=== PATIENT | female | born 1955 | race Caucasian/White ===

== ENCOUNTER 2023-11-08 14:16 | Outpatient (AMB) | payer MEDICARE, MEDICAID, SELFPAY ==
--- NOTE | 2023-11-08 14:18 | A.OFFVIS_ITS ---
Intake Visit Reasons: recurrent UTI and dysuria Intake Note: NEW Patient presents today to established treatment for UTI & Dysuria: Meds- Oxybutynin Allergies to Antibiotic- No Known Allergies Blood Thinner- None PVR 35 mL Cutter Banana Room Required: No Accompanied by: Self / Same As Patient Allergies ciprofloxacin [From Cipro] Allergy (Mild, Verified 11/08/23 14:32) Hives Iodinated Contrast Media Allergy (Mild, Verified 11/08/23 14:32) Hives Penicillins Allergy (Mild, Verified 11/08/23 14:32) Hives Sulfa (Sulfonamide Antibiotics) Allergy (Mild, Verified 11/08/23 14:33) Hives pollen extracts Allergy (Verified 11/08/23 14:33) Shortness of Breath doxycycline Adverse Reaction (Verified 11/08/23 14:32) Nausea HPI Comments Details: Nora is a 67-year-old female who is here for evaluation due to recurrent UTIs. She states the problem has done going on for 2-3 years. She has symptoms of urgency and dysuria. I reviewed urine culture 06/27/2023 resulting in E coli pansensitive, and urine culture 07/05/23- No growth. The patient states that after completing antibiotic feel better and has been taking zvge-[id number]-hozyxfr D- mannose. The patient has allergies to a few antibiotics ciprofloxacin, penicillin and Bactrim resulting in hives and sensitivity to doxycycline, nausea. I have discussed that in Karen and postmenopausal women who are sexual active due to changes estrogen production there is a decrease in vaginal pH that can promote an environment for his bacteria. Nora states that her is recently diagnosed with prostate cancer and undergoing radiation therapy. Office Urinalysis 3+ leukocytes trace blood, bladder scan PVR 35 mL. I have discussed further evaluation with renal ultrasound and office cystoscopy, pelvic exam at time. [facility] Medical History (Updated 11/08/23 @ 15:46 by Fatuma Shrestha MD) Hx of recurrent urinary tract infection History of dysuria Dysfunction of right eustachian tube GERD (gastroesophageal reflux disease) Allergic rhinitis HTN (hypertension) Obstructive sleep apnea Anxiety Surgical History (Updated 11/08/23 @ 14:26 by CECE Ponce) Hx of colonoscopy History of esophagogastroduodenoscopy (EGD) Family History (Updated 11/08/23 @ 14:25 by CECE Ponce) Father History of colon polyps Mother History of colon polyps Social History (Updated 11/08/23 @ 14:25 by CECE Ponce) Alcohol intake: current Alcohol intake frequency: holidays/special occasions only Patient Tobacco Use Status: Never used Tobacco Review of Systems Const All systems reviewed & are unremarkable except as noted in HPI and below Reports no additional complaints Eyes Reports no additional complaints ENT Reports no additional complaints Card Reports no additional complaints Resp Reports no additional complaints GI Reports no additional complaints Reports as per HPI Musc Reports no additional complaints Skin/Breast Reports system reviewed and no additional complaints, except as documented Neuro Reports no additional complaints Psych Reports no additional complaints Endo Reports no additional complaints Bienvenido/Lymph Reports no additional complaints Aller/Immun Reports no additional complaints Physical Exam Const General: cooperative, healthy appearing and no acute distress Orientation/consciousness: patient oriented x3 HEENT Head: Yes normal to inspection, Yes normocephalic and Yes atraumatic Eyes Conjunctivae: conjunctivae normal Neck Neck: Yes normal visual inspection and Yes trachea midline Chest Chest palpation & inspection: normal inspection of the chest Resp Effort & Inspection: normal respiratory effort Cardio Jugular venous distension: no JVD GI Inspection: Yes normal to inspection Skin General skin exam: no rashes or lesions noted Neuro General: patient oriented x3 Extrem General: No edema Psych Appearance: grossly normal Office Procedures Post Void Residual Post Residual Void Post Void Residual (PVR): 35 [id number] Void Residual by ultrasound Results AMB Urinalysis, Automated UA Leukoctes 500 Maye/uL Last Edit by CECE Ponce on 11/08/23 15:49 3+ Faustino Chery 11/08/23 15:49 UA Nitrite Negative Last Edit by CECE Ponce on 11/08/23 15:49 UA Urobilinogen 0.2 mg/dL Last Edit by CECE Ponce on 11/08/23 15:4 9 UA Protein 0 mg/dL Last Edit by CECE Ponce on 11/08/23 15:49 UA pH 7.0 Last Edit by CECE Ponce on 11/08/23 15:49 UA Blood 10 Andrez/uL Last Edit by CECE Ponce on 11/08/23 15:49 UA Specific [place] 1.005 Last Edit by ANA LUISA PonceA on 11/08/23 15: 49 UA Ketone Negative Last Edit by ANA LUISA PonceA on 11/08/23 15:49 UA Bilirubin 0 mg/dL Last Edit by CECE Ponce on 11/08/23 15:49 UA Glucose 0 mg/dL Last Edit by CECE Ponce on 11/08/23 15:49 Results Reviewed Results Reviewed: Laboratory Last Values Urine pH (Auto) 7.0 11/08/23 15:48 Specific [place] (Auto) 1.005 11/08/23 15:48 Urine Protein (Auto) 0 mg/dL 11/08/23 15:48 Glucose (UA)(Auto) 0 mg/dL 11/08/23 15:48 Urine Ketones (Auto) Negative 11/08/23 15:48 Urine Blood (Auto) 10 Andrez/uL 11/08/23 15:48 Urine Nitrite (Auto) Negative 11/08/23 15:48 Urine Bilirubin (Auto) 0 mg/dL 11/08/23 15:48 Urine Urobilinogen (Auto) 0.2 mg/dL 11/08/23 15:48 Leukocyte Esterase (Auto) 500 Maye/uL 11/08/23 15:48 Assessment & Plan Assessment & Plan (1) Recurrent UTI: Code(s): N39.0 - Urinary tract infection, site not specified Category: Medical (2) Urine leukocytes: Code(s): R82.998 - Other abnormal findings in urine Category: Medical (3) Microscopic hematuria: Code(s): R31.29 - Other microscopic hematuria Category: Medical Plan Surveillance urine culture, renal ultrasound (patient requests Cano) and office cystoscopy Orders: Orders AMB Urinalysis Automated 11/08/23 Z13.9 - Encounter for screening, unspecified Urine Culture 11/08/23 N39.0 - Urinary tract infection, site not specified AMB Post Void Residual by ultrasound 11/08/23 N39.8 - Other specified disorders of urinary system US renal BI 11/08/23 N39.0 - Urinary tract infection, site not specified Patient Instructions: The patient had an opportunity to ask questions regarding treatment plan. The patient expressed understanding and agreement with the above treatment plan. The patient is aware they should contact our office by phone for worsening of their current condition or the appearance of new symptoms. Compliance is encouraged with any medications and followup testing that is ordered. It is a privilege to be allowed the opportunity to participate in the urologic care of your patient. If you have any questions or concerns regarding treatment for the above conditions please do not hesitate to contact me. The office telephone contact is [phone]. This note is constructed in part using voice recognition software. While every effort has been made to ensure accuracy construction tech errors may have been included. Yours sincerely, Fatuma Shrestha MD Coding Level of Care Code New Pt Level 4 (57646) Diagnoses Recurrent UTI N39.0 Urine leukocytes R82.998 Microscopic hematuria R31.29 CPT Codes Post Residual Void - PVR CPT Code: 29116-Ftbc Void Residual by ultrasound ([id number])
== END 2023-11-08 15:35 | disposition home or self-care (01) ==
PROVIDERS: PCP Family Medicine; Visit Provider Urology
DX: N39.0 Urinary tract infection, site not specified (principal); R82.998 Other abnormal findings in urine; R31.29 Other microscopic hematuria
CPT/HCPCS: 99204

== ENCOUNTER 2023-11-08 14:16 | Outpatient (REF) | payer MEDICARE, MEDICAID, SELFPAY | END 2023-11-08 14:17 | disposition home or self-care (01) | LOC: HO.LAB 14:16 | PROVIDERS: PCP Family Medicine; Visit Provider Urology | DX: N39.0 Urinary tract infection, site not specified (principal); R82.998 Other abnormal findings in urine; R31.29 Other microscopic hematuria; Z79.899 Other long term (current) drug therapy | CPT/HCPCS: 51798; 81003; 87086; 99202 ==

== ENCOUNTER 2023-12-13 13:17 | Outpatient (AMB) | payer MEDICARE, MEDICAID, SELFPAY ==
--- NOTE | 2023-12-13 13:35 | MHC.OFFVIS ---
Intake Visit Reasons: cysto/US Intake Note: NEW Patient presents today for cysto/US Meds- Oxybutynin Allergies to Antibiotic- Penicillin,ciprofloxacin,doxycycline,sulfa Blood Thinner- None PVR: 35 mL Today's PVR: 0ml's Dam Tender Required: No Accompanied by: Self / Same As Patient Allergies ciprofloxacin [From Cipro] Allergy (Mild, Verified 01/23/24 14:24) Hives Iodinated Contrast Media Allergy (Mild, Verified 01/23/24 14:24) Hives Penicillins Allergy (Mild, Verified 01/23/24 14:24) Hives Sulfa (Sulfonamide Antibiotics) Allergy (Mild, Verified 01/23/24 14:24) Hives pollen extracts Allergy (Verified 01/23/24 14:24) Shortness of Breath doxycycline Adverse Reaction (Verified 01/23/24 14:24) Nausea HPI Comments Details: 12/13/2023--here for office cystoscopy. Renal ultrasound completed, 12/12/23--results reviewed with the patient kidneys and bladder within normal limits. She states she has had repeat episodes of blood in the urine. She was treated again with antibiotics by her PCP but urine culture came back no growth. Cystoscopy findings:--prominent vasculature with erythematous changes noted. I have discussed further evaluation with biopsy. 11/08/23--Nora is a 67-year-old female who is here for evaluation due to recurrent UTIs. She states the problem has done going on for 2-3 years. She has symptoms of urgency and dysuria. I reviewed urine culture 06/27/2023 resulting in E coli pansensitive, and urine culture 07/05/23- No growth. The patient states that after completing antibiotic feel better and has been taking lasy-qex-qqupese D-mannose. The patient has allergies to a few antibiotics ciprofloxacin, penicillin and Bactrim resulting in hives and sensitivity to doxycycline, nausea. I have discussed that in Karen and postmenopausal women who are sexual active due to changes estrogen production there is a decrease in vaginal pH that can promote an environment for his bacteria. Nora states that her is recently diagnosed with prostate cancer and undergoing radiation therapy. Office Urinalysis 3+ leukocytes trace blood, bladder scan PVR 35 mL. I have discussed further evaluation with renal ultrasound and office cystoscopy, pelvic exam at time. [facility] Medical History Hx of recurrent urinary tract infection History of dysuria Dysfunction of right eustachian tube GERD (gastroesophageal reflux disease) Allergic rhinitis HTN (hypertension) Obstructive sleep apnea Anxiety Surgical History Hx of colonoscopy History of esophagogastroduodenoscopy (EGD) Family History Father History of colon polyps Mother History of colon polyps Social History Alcohol intake: current Alcohol intake frequency: does not drink Patient Tobacco Use Status: Never used Tobacco Review of Systems Const All systems reviewed & are unremarkable except as noted in HPI and below Reports no additional complaints Eyes Reports no additional complaints ENT Reports no additional complaints Card Reports no additional complaints Resp Reports no additional complaints GI Reports no additional complaints Reports as per HPI Musc Reports no additional complaints Skin/Breast Reports system reviewed and no additional complaints, except as documented Neuro Reports no additional complaints Psych Reports no additional complaints Endo Reports no additional complaints Bienvenido/Lymph Reports no additional complaints Aller/Immun Reports no additional complaints Office Procedures Cystoscopy Consent Discussed risk and benefit or proposed procedure with the patient. Information consent for procedure given to the patient. Discussed technical aspects, risks, benefits and alternatives in full. Addressed all of the patient's questions and concerns regarding the procedure. The patient demonstrated knowledge and understanding. They wish to proceed with this procedure. Preparation The patient was prepped in the usual manner. A interventional radiology technologist was present and in the room. Genitalia was prepped with betadine solution in a sterile manner. Lidocaine Jelly 2% was placed into the urethra and 16Fr flexible Olympus cystoscope was inserted into the meatus after adequate lubrication. Procedure Time out per protocol performed. Bladder Inspection Bladder Inspection: The bladder was inspected in its entirety with utilization retroflexion displaying: Trabeculation: Mild Mucosal Erthema: prominent vasculature with erythematous changes noted. Orifices: normal shape and position Urethra: normal Cystoscopy findings:--prominent vasculature with erythematous changes noted. I have discussed further evaluation with biopsy. [id number] DISPOSABLE SCOPE URO-G FLEXIBLE SCOPE Procedure code (CPT) selection complete Office Meds lidocaine HCl 2 % mucosal jelly in applicator Performing Provider: Fatuma Shrestha MD Performing Location: [facility] [place] [facility] [place] [facility] Administered by: Arcenio Lewis LPN on 12/13/23 13:48 Dose Route Admin Location Dispensed Lot Number Expiration Date NDC Cullet Washer 10 mL intra-urethral 10 mL nitrofurantoin monohydrate/macrocrystals 100 mg capsule Performing Provider: Fatuma Shrestha MD Performing Location: [facility] [place] [facility] [place] [facility] Administered by: Arcenio Lewis LPN on 12/13/23 13:48 Dose Route Admin Location Dispensed Lot Number Expiration Date NDC Cullet Washer 100 mg PO 1 cap naproxen 500 mg tablet Performing Provider: Fatuma Shrestha MD Performing Location: [facility] [place] [facility] Administered by: Arcenio Lewis LPN on 12/13/23 13:48 Dose Route Admin Location Dispensed Lot Number Expiration Date NDC Cullet Washer 500 mg PO 1 tab Results AMB Urinalysis, Automated UA Leukoctes 500 Maye/uL Last Edit by IVY Villatoro on 12/13/23 13:48 UA Nitrite Negative Last Edit by IVY Villatoro on 12/13/23 13:48 UA Urobilinogen 0.2 mg/dL Last Edit by IVY Villatoro on 12/13/23 13:48 UA Protein 0 mg/dL Last Edit by IVY Villatoro on 12/13/23 13:48 UA pH 6.5 Last Edit by IVY Villatoro on 12/13/23 13:48 UA Blood 80 Andrez/uL Last Edit by IVY Villatoro on 12/13/23 13:48 UA Specific [place] 1.005 Last Edit by IVY Villatoro on 12/13/23 13:48 UA Ketone Negative Last Edit by IVY Villatoro on 12/13/23 13:48 UA Bilirubin 0 mg/dL Last Edit by IVY Villatoro on 12/13/23 13:48 UA Glucose 0 mg/dL Last Edit by IVY Villatoro on 12/13/23 13:48 Results Reviewed Results Reviewed: Laboratory Last Values Urine pH (Auto) 6.5 12/13/23 13:47 Specific [place] (Auto) 1.005 12/13/23 13:47 Urine Protein (Auto) 0 mg/dL 12/13/23 13:47 Glucose (UA)(Auto) 0 mg/dL 12/13/23 13:47 Urine Ketones (Auto) Negative 12/13/23 13:47 Urine Blood (Auto) 80 Andrez/uL 12/13/23 13:47 Urine Nitrite (Auto) Negative 12/13/23 13:47 Urine Bilirubin (Auto) 0 mg/dL 12/13/23 13:47 Urine Urobilinogen (Auto) 0.2 mg/dL 12/13/23 13:47 Leukocyte Esterase (Auto) 500 Maye/uL 12/13/23 13:47 Assessment & Plan Assessment & Plan (1) Recurrent UTI: Code(s): N39.0 - Urinary tract infection, site not specified Category: Medical (2) Urine leukocytes: Code(s): R82.998 - Other abnormal findings in urine Category: Medical (3) Microscopic hematuria: Code(s): R31.29 - Other microscopic hematuria Category: Medical (4) Hematuria: Code(s): R31.9 - Hematuria, unspecified Category: Medical Plan Cystoscopy findings:--prominent vasculature with erythematous changes noted. I have discussed further evaluation with biopsy. Orders: Orders AMB Urinalysis Automated 12/13/23 Z13.9 - Encounter for screening, unspecified AMB Cystoscopy 12/13/23 R31.29 - Other microscopic hematuria, N39.0 - Urinary tract infection, site not specified, R82.998 - Other abnormal findings in urine Coding Level of Care Code Est Pt Level 3 (74817) Diagnoses Recurrent UTI N39.0 Urine leukocytes R82.998 Microscopic hematuria R31.29 Hematuria R31.9 CPT Codes Cystoscopy - CPT: 66999-Tbchatzmcc ([id number])
== END 2023-12-13 14:57 | disposition home or self-care (01) ==
PROVIDERS: PCP Family Medicine; Visit Provider Urology
DX: R31.29 Other microscopic hematuria (principal); N39.0 Urinary tract infection, site not specified; R82.998 Other abnormal findings in urine; Z13.9 Encounter for screening, unspecified
CPT/HCPCS: 52000

== ENCOUNTER → 2023-12-13 13:17 | Outpatient (BNVA) | payer MEDICARE, MEDICAID, SELFPAY | PROVIDERS: PCP Family Medicine; Visit Provider Urology | DX: N39.0 Urinary tract infection, site not specified (principal); R82.998 Other abnormal findings in urine; R31.29 Other microscopic hematuria; R31.9 Hematuria, unspecified | CPT/HCPCS: 52000; 81003 ==

== ENCOUNTER 2024-01-01 09:56 | Day surgery (SDC) | payer MEDICARE, OTHER, SELFPAY ==
--- NOTE | 2023-12-31 10:42 | HO.ANESPROP2 ---
Documented by User: Janet Portillo NP 12/31/23 10:44 HPI - Anesthesia Eval Consult details Narrative: 68yo F for Cystoscopy & Bladder Biopsy PMFSH Active Problems Active Problems: All Active Problems Hematuria (Acute) Microscopic hematuria (Acute) Urine leukocytes (Acute) Recurrent UTI (Acute) Past Medical History Medical History Hx of recurrent urinary tract infection History of dysuria Dysfunction of right eustachian tube GERD (gastroesophageal reflux disease) Allergic rhinitis HTN (hypertension) Obstructive sleep apnea Anxiety Family History Family History Father History of colon polyps Mother History of colon polyps Surgical History Surgical History Hx of colonoscopy History of esophagogastroduodenoscopy (EGD) Social History Social History Alcohol intake: current Alcohol intake frequency: does not drink Patient Tobacco Use Status: Never used Tobacco Are you DNR?: No Advance Directives: No Advance Directives Information Provided: Yes Meds Allergies Allergy/AdvReac Type Severity Reaction Status Date / Time ciprofloxacin [From Cipro] Allergy Mild Hives Verified 12/13/23 13:36 Iodinated Contrast Media Allergy Mild Hives Verified 12/13/23 13:36 Penicillins Allergy Mild Hives Verified 12/13/23 13:36 Sulfa (Sulfonamide Allergy Mild Hives Verified 12/13/23 13:36 Antibiotics) pollen extracts Allergy Shortness Verified 12/13/23 13:36 of Breath doxycycline AdvReac Nausea Verified 12/13/23 13:36 Home Medications ?Medication ?Instructions ?Recorded ?Confirmed ?Last Taken ?Type chlorthalidone 25 mg tablet 25 mg PO DAILY 11/08/23 Unknown History famotidine 40 mg tablet 40 mg PO BID 11/08/23 Unknown History lorazepam 0.5 mg tablet mg PO 11/08/23 Unknown History oxybutynin chloride 5 mg 5 mg PO DAILY 11/08/23 Unknown History tablet,extended release 24 hr Assessment and Plan Assessment Anesthesia Assessment: Chart Reviewed Documented by User: Kristi Odell MD 01/01/24 12:39 PMFSH Past Medical History Medical History Hx of recurrent urinary tract infection History of dysuria Dysfunction of right eustachian tube GERD (gastroesophageal reflux disease) Allergic rhinitis HTN (hypertension) Obstructive sleep apnea Anxiety Family History Family History Father History of colon polyps Mother History of colon polyps Surgical History Surgical History Hx of colonoscopy History of esophagogastroduodenoscopy (EGD) History of Problems with Anesthesia: No Social History Social History Alcohol intake: current Alcohol intake frequency: does not drink Patient Tobacco Use Status: Never used Tobacco Are you DNR?: No Advance Directives: No Advance Directives Information Provided: Yes Meds Allergies Allergy/AdvReac Type Severity Reaction Status Date / Time ciprofloxacin [From Cipro] Allergy Mild Hives Verified 12/13/23 13:36 Iodinated Contrast Media Allergy Mild Hives Verified 12/13/23 13:36 Penicillins Allergy Mild Hives Verified 12/13/23 13:36 Sulfa (Sulfonamide Allergy Mild Hives Verified 12/13/23 13:36 Antibiotics) pollen extracts Allergy Shortness Verified 12/13/23 13:36 of Breath doxycycline AdvReac Nausea Verified 12/13/23 13:36 Home Medications ?Medication ?Instructions ?Recorded ?Confirmed ?Last Taken ?Type chlorthalidone 25 mg tablet 25 mg PO DAILY 11/08/23 Unknown History famotidine 40 mg tablet 40 mg PO BID 11/08/23 Unknown History lorazepam 0.5 mg tablet mg PO 11/08/23 Unknown History oxybutynin chloride 5 mg 5 mg PO DAILY 11/08/23 Unknown History tablet,extended release 24 hr Exam Airway Mallampati Class: II TM Dist: >3cm Neck ROM: Full Loose/Missing/Broken Teeth: No Heart: RRR Lungs: CTA Assessment and Plan Assessment Anesthesia Assessment: Anesthesia Plan Discussed Final Anesthetic Review History of Problems with Anesthesia: No NPO: Yes ASA Class: III Final Preanesthetic Review: Meds/Allgs Chart Reviewed, Consent Obtained/Reviewed and Anes Risks/Benef Reviewed Patient Risk: Intermediate Procedure Risk: Low Anesthetic Plan Anesthetic Plan: GA Disposition: Standard PACU
[2024-01-01 10:24] VITALS: BP 149/77; PULSE 66; RESP 18; TEMP 36.3; O2SAT 96; BMI 24.3
[2024-01-01] MEDS: Lactated Ringers 1,000 ML 100 ML IVCONT (10:46)
--- NOTE | 2024-01-01 12:53 | MHC.SHP ---
Pre-Procedural Eval Section A - 24 Hr Update-Section A only Date of Service: 01/01/24 The patient is an INPATIENT: No The patient has been examined within 24 hours of the surgical procedure. The History & Physical has been completed within 30 days and I have reviewed it.: Yes Section B - Complete if H&P > 30 days Chief Complaint: Hematuria, unspecified Allergies: Allergies Allergy/AdvReac Type Severity Reaction Status Date / Time ciprofloxacin [From Cipro] Allergy Mild Hives Verified 12/13/23 13:36 Iodinated Contrast Media Allergy Mild Hives Verified 12/13/23 13:36 Penicillins Allergy Mild Hives Verified 12/13/23 13:36 Sulfa (Sulfonamide Allergy Mild Hives Verified 12/13/23 13:36 Antibiotics) pollen extracts Allergy Shortness Verified 12/13/23 13:36 of Breath doxycycline AdvReac Nausea Verified 12/13/23 13:36 Plan Diagnosis/Plan: Unchanged I have reviewed the history and physical and performed a pertinent physical examination on my patient. No changes have occurred unless specified. Cystoscopy Bladder biopsies. Time Spent With Patient Time: Total time managing care of this patient today ____ minutes.
[2024-01-01 14:30] VITALS: BP 137/59; PULSE 67; RESP 16; TEMP 36.3; O2SAT 99
[2024-01-01 14:35] VITALS: BP 131/57; PULSE 68; RESP 16; O2SAT 99
[2024-01-01 14:40] VITALS: BP 140/60; PULSE 72; RESP 16; O2SAT 99
--- NOTE | 2024-01-01 14:41 | W.PM.OPN ---
Operative Note Operative Note Date of Service: 01/01/24 Narrative: PREOP DIAGNOSIS: Hematuria POSTOP DIAGNOSIS: Hematuria PROCEDURE: CYSTOSCOPY BLADDER BIOPSIES SURGEON: Fatuma Shrestha MD ANESTHESIA: GENERAL Indications: The patient had office cystoscopy which noted multifocal erythematous changes. Further evaluation with bladder biopsies discussed. Details of procedure: The patient was brought into the operating room placed on the OR table in supine position. 2 g of Ancef IV. General anesthesia was administered. The patient was repositioned into lithotomy position, prepped and draped in the usual sterile fashion. Time-out was done per protocol. 2% lidocaine urojet was passed transurethrally into the bladder. A 22 fr cystoscope was placed transurethrally into the bladder. The right and left ureteral orifices were visualized. The entire bladder was visualized. Multifocal erythematous changes noted on the posterior wall and right lateral wall. Biopsies were obtained. The Bugbee electrode was used to obtain adequate hemostasis. The cystoscope was removed. The patient was brought out of anesthesia and taken to recovery in stable condition. Complications: None Drains: None
[2024-01-01 14:45] VITALS: BP 133/59; PULSE 77; RESP 16; O2SAT 99
[2024-01-01 15:00] VITALS: BP 127/53; PULSE 64; RESP 16; TEMP 36.1; O2SAT 99
== END 2024-01-01 15:19 | disposition home or self-care (01) ==
PROVIDERS: PCP Family Medicine; Visit Provider Urology
PROC: (CPT 52204; principal; 2024-01-01 11:30)
DX: N30.21 Other chronic cystitis with hematuria (principal); R30.0 Dysuria; R39.15 Urgency of urination; Z87.440 Personal history of urinary (tract) infections; I10 Essential (primary) hypertension; J30.9 Allergic rhinitis, unspecified; G47.33 Obstructive sleep apnea (adult) (pediatric); F41.9 Anxiety disorder, unspecified; Z79.899 Other long term (current) drug therapy; Z88.0 Allergy status to penicillin; Z88.1 Allergy status to other antibiotic agents; Z88.2 Allergy status to sulfonamides; Z91.041 Radiographic dye allergy status
CPT/HCPCS: 52204; 88305; J0690; J1100; J2405; J2704; J3010

== ENCOUNTER → 2024-01-01 09:56 | Outpatient (BNV) | payer MEDICARE, SELFPAY | PROVIDERS: PCP Family Medicine; Visit Provider Urology | DX: R31.9 Hematuria, unspecified (principal) | CPT/HCPCS: 52204 ==

== ENCOUNTER 2024-01-23 15:13 | Outpatient (AMB) | payer MEDICARE, MEDICAID, SELFPAY ==
--- NOTE | 2024-01-23 13:49 | MHC.OFFVIS ---
Intake Visit Reasons: Post op/Bladder biopsy results Intake Note: Pt presents to the office today as a telehealth visit for post op/Bladder biopsy results. Allergies ciprofloxacin [From Cipro] Allergy (Mild, Verified 01/23/24 14:24) Hives Iodinated Contrast Media Allergy (Mild, Verified 01/23/24 14:24) Hives Penicillins Allergy (Mild, Verified 01/23/24 14:24) Hives Sulfa (Sulfonamide Antibiotics) Allergy (Mild, Verified 01/23/24 14:24) Hives pollen extracts Allergy (Verified 01/23/24 14:24) Shortness of Breath doxycycline Adverse Reaction (Verified 01/23/24 14:24) Nausea HPI Comments Details: 01/23/24--reviewed path, - cysttitis-- pt doing well post bx FU in 6 months monitor urinary symptoms, currently she is asymptomatic. Review of symptoms: 12/13/2023--here for office cystoscopy. Renal ultrasound completed, 12/12/23--results reviewed with the patient kidneys and bladder within normal limits. She states she has had repeat episodes of blood in the urine. She was treated again with antibiotics by her PCP but urine culture came back no growth. Cystoscopy findings:--prominent vasculature with erythematous changes noted. I have discussed further evaluation with biopsy. 11/08/23--Nora is a 67-year-old female who is here for evaluation due to recurrent UTIs. She states the problem has done going on for 2-3 years. She has symptoms of urgency and dysuria. I reviewed urine culture 06/27/2023 resulting in E coli pansensitive, and urine culture 07/05/23- No growth. The patient states that after completing antibiotic feel better and has been taking [id number] D-mannose. The patient has allergies to a few antibiotics ciprofloxacin, penicillin and Bactrim resulting in hives and sensitivity to doxycycline, nausea. I have discussed that in Karen and postmenopausal women who are sexual active due to changes estrogen production there is a decrease in vaginal pH that can promote an environment for his bacteria. Nora states that her is recently diagnosed with prostate cancer and undergoing radiation therapy. Office Urinalysis 3+ leukocytes trace blood, bladder scan PVR 35 mL. I have discussed further evaluation with renal ultrasound and office cystoscopy, pelvic exam at time. [facility] Medical History Hx of recurrent urinary tract infection History of dysuria Dysfunction of right eustachian tube GERD (gastroesophageal reflux disease) Allergic rhinitis HTN (hypertension) Obstructive sleep apnea Anxiety Surgical History Hx of colonoscopy History of esophagogastroduodenoscopy (EGD) Family History Father History of colon polyps Mother History of colon polyps Social History Alcohol intake: current Alcohol intake frequency: does not drink Patient Tobacco Use Status: Never used Tobacco Review of Systems Const All systems reviewed & are unremarkable except as noted in HPI and below Reports no additional complaints Eyes Reports no additional complaints ENT Reports no additional complaints Card Reports no additional complaints Resp Reports no additional complaints GI Reports no additional complaints Reports as per HPI Musc Reports no additional complaints Skin/Breast Reports system reviewed and no additional complaints, except as documented Neuro Reports no additional complaints Psych Reports no additional complaints Endo Reports no additional complaints Bienvenido/Lymph Reports no additional complaints Aller/Immun Reports no additional complaints Telehealth Telehealth Telehealth Platform: Telephone Location of provider rendering services: practice address Location of patient: address on file Patient Identification confirmed using: Name, : Yes Telehealth method: voice only Patient verbally consented to treatment: Yes Patient verbally consented to billing insurance company: Yes Patient informed of any privacy concerns related to visit: Yes Minutes spent on Phone/Video with Pt.: 15 Results Reviewed Results Reviewed: Collected: 01/01/24 Location: [facility] Received: 01/01/24 Diagnosis A. Bladder, posterior wall lesion, biopsy: Mild chronic cystitis; no definitive muscularis propria identified. B. Bladder, posterior wall lesion #2, biopsy: Mild chronic cystitis; muscularis propria present. C. Bladder, right lateral wall, biopsy: Mild chronic cystitis; no muscularis propria present. D. Bladder, random left wall, biopsy: Mild chronic cystitis; muscularis propria present. Clinical History Hematuria Microscopic Description A-D. Microscopic sections reviewed. Material Received A. Bladder lesion posterior wall B. Bladder lesion posterior wall #2 C. Right lateral bladder wall D. Random left bladder wall Gross Description Received in four parts. Part A: Received in formalin labeled ?bladder lesion posterior wall #1? on Telfa are 2 pink-red irregular tissue fragments each measuring 0.25 cm, submitted in toto in a cassette labeled A. Part B: Received in formalin labeled ?bladder lesion posterior wall #2? free-floating in formalin with Telfa is a 0.25 cm red-maroon irregular tissue fragment, submitted in toto in a cassette labeled B. Part C: Received in formalin labeled right lateral wall bladder? free-floating in formalin with Telfa are 2 congested and hemorrhagic red-maroon irregular tissue fragments each measuring 0.25 cm, submitted in toto in a cassette labeled C. Part D: Received in formalin labeled random left lateral wall bladder? on Telfa are 2 minute to 0.15 cm pink-red irregular tissue fragments, submitted in toto in a cassette labeled D. CEDS This case was reviewed intradepartmentally. Patient: Nora Lewis Age/Sex: 68/F MR#: [id number] Page 1 of 2 Assessment & Plan Assessment & Plan (1) Recurrent UTI: Code(s): N39.0 - Urinary tract infection, site not specified Category: Medical (2) Urine leukocytes: Code(s): R82.998 - Other abnormal findings in urine Category: Medical (3) Microscopic hematuria: Code(s): R31.29 - Other microscopic hematuria Category: Medical (4) Hematuria: Code(s): R31.9 - Hematuria, unspecified Category: Medical Plan bladder biopsy - path- cystitis. fu in 6 months Patient Instructions: The patient had an opportunity to ask questions regarding treatment plan. The patient expressed understanding and agreement with the above treatment plan. The patient is aware they should contact our office by phone for worsening of their current condition or the appearance of new symptoms. Compliance is encouraged with any medications and followup testing that is ordered. It is a privilege to be allowed the opportunity to participate in the urologic care of your patient. If you have any questions or concerns regarding treatment for the above conditions please do not hesitate to contact me. The office telephone contact is [phone]. This note is constructed in part using voice recognition software. While every effort has been made to ensure accuracy painter and decorator errors may have been included. Yours sincerely, Fatuma Shrestha MD Coding Level of Care Code Tele Est Pt Level 3 (21713) Diagnoses Recurrent UTI N39.0 Urine leukocytes R82.998 Microscopic hematuria R31.29 Hematuria R31.9
== END 2024-01-23 16:09 | disposition home or self-care (01) ==
LOC: HO.HUSH 15:13
PROVIDERS: PCP Family Medicine; Visit Provider Urology
DX: N39.0 Urinary tract infection, site not specified (principal); R82.998 Other abnormal findings in urine; R31.29 Other microscopic hematuria; R31.9 Hematuria, unspecified
CPT/HCPCS: 99442

== ENCOUNTER → 2024-01-23 15:13 | Outpatient (BNVA) | payer MEDICARE, SELFPAY | PROVIDERS: PCP Family Medicine; Visit Provider Urology ==